=== PATIENT | male | born 1995 | race Caucasian/White ===

== ENCOUNTER 2019-04-15 21:55 | Emergency (ER) | payer OTHER ==
[2019-04-15 22:03] VITALS: BP 127/74; PULSE 76; TEMP 98.6; BMI 22.4
[2019-04-15] MEDS ORDERED: IBUPROFEN 400 MG TABLET (FP) PO ONE ×2 (22:27→22:31)
[2019-04-15] MEDS ORDERED: hydrOXYzine PAMOATE 25 MG CAPSULE (FP) PO ONE ×2 (22:27→22:31)
--- NOTE | 2019-04-15 23:04 | PDOC ---
Documentation entered by Marlee Keller SCRIBE, acting as scribe for Sebastian Monte MD. Sebastian Monte MD: This documentation has been prepared by the Arianna earl Xhesika, SCRIBE, under my direction and personally reviewed by me in its entirety. I confirm that the documentation accurately reflects all work, treatment, procedures, and medical decision making performed by me. History of Present Illness - General Chief Complaint: Back Pain Stated Complaint: BACK PAIN Time Seen by Provider: 04/15/19 22:02 History Source: Patient Exam Limitations: No Limitations - History of Present Illness Initial Comments: 04/15/19 22:38 The patient is a 23 year old male with a significant PMH of minor scoliosis who presents to the emergency department for 8 days of mid back pain. The patient is unable to recall what triggered his back pain however, he remembers driving his brother to the airport and lifting his luggage prior to the onset of his back pain. Pt states his back pain can get so severe it is unbearable to walk or sit down. Pt has been taking ibuprofen, using patches and belts for his back with mild relief of symptoms. Pt states his back pain is aggravated when lifting his hands. Pt notes he spends time sitting and playing video games. The patient denies chest pain, shortness of breath, headache and dizziness. Denies fever, chills, cough, nausea, vomiting, diarrhea and constipation. Allergies: NKDA Past History - Past Medical History Allergies/Adverse Reactions: Allergies Allergy/AdvReac Type Severity Reaction Status Date / Time No Known Allergies Allergy Unverified 04/15/19 21:56 Home Medications: Ambulatory Orders Cyclobenzaprine HCl [Flexeril -] 10 mg PO TID #15 tablet 04/15/19 Ibuprofen 800 mg PO TID #15 tablet 04/15/19 COPD: No - Psycho Social/Smoking Cessation Hx Smoking History: Current every day smoker Number of Cigarettes Smoked Daily: 5 Information on smoking cessation initiated: Yes Review of Systems - Review of Systems Able to Perform ROS?: Yes Comments:: 04/15/19 22:40 GENERAL/CONSTITUTIONAL: No fever or chills. No weakness. HEAD, EYES, EARS, NOSE AND THROAT: No change in vision. No ear pain or discharge. No sore throat. CARDIOVASCULAR: No chest pain or shortness of breath. RESPIRATORY: No cough, wheezing, or hemoptysis. GASTROINTESTINAL: No nausea, vomiting, diarrhea or constipation. GENITOURINARY: No dysuria, frequency, or change in urination. MUSCULOSKELETAL: No joint or muscle swelling or pain. No neck pain. +mid back pain. SKIN: No rash NEUROLOGIC: No headache, vertigo, loss of consciousness, or change in strength/ sensation. ENDOCRINE: No increased thirst. No abnormal weight change. HEMATOLOGIC/LYMPHATIC: No anemia, easy bleeding, or history of blood clots. ALLERGIC/IMMUNOLOGIC: No hives or skin allergy. *Physical Exam - Vital Signs Last Vital Signs Temp Pulse Resp BP Pulse Ox 98.6 F 76 16 127/74 100 04/15/19 21:58 04/15/19 21:58 04/15/19 21:58 04/15/19 21:58 04/15/19 21:58 - Physical Exam 04/15/19 22:40 GENERAL: Awake, alert, and fully oriented, in no acute distress NECK: Normal ROM, supple, no lymphadenopathy, JVD, or masses LUNGS: Breath sounds equal, clear to auscultation bilaterally. No wheezes, and no crackles HEART: Regular rate and rhythm, normal S1 and S2, no murmurs, rubs or gallops ABDOMEN: Soft, nontender, normoactive bowel sounds. No guarding, no rebound. No masses BACK: + mild paravatebral muscle spasms to palpation along the thoracic spine bilaterally. No point tenderness. No radiculopathy. EXTREMITIES: Normal range of motion, no edema. No clubbing or cyanosis. No cords, erythema, or tenderness NEUROLOGICAL: Cranial nerves II through XII grossly intact. Normal speech, normal gait SKIN: Warm, Dry, normal turgor, no rashes or lesions noted. ED Treatment Course - RADIOLOGY Radiology Studies Ordered: Category Date Time Status SPINE-THORACIC [RAD] Stat Radiology 04/15/19 22:30 Ordered Medical Decision Making - Medical Decision Making 04/15/19 23:03 X-ray negative Most likely muscle strain. Rest, symptomatic treatment, and follow-up as necessary. Fully ambulatory and no significant pain or other distress at discharge with family Discharge - Discharge Information Problems reviewed: Yes Clinical Impression/Diagnosis: Muscle strain of upper back Condition: Improved Disposition: HOME - Admission No - Additional Discharge Information Prescriptions: Cyclobenzaprine HCl [Flexeril -] 10 mg PO TID #15 tablet Ibuprofen 800 mg PO TID #15 tablet - Follow up/Referral Referrals: Cheryl Avila MD [Primary Care Provider] - 3 days - Patient Discharge Instructions Patient Printed Discharge Instructions: DI for Thoracic Back Pain Additional Instructions: Rest, heat, with sitting in a chair or car. Medication as directed. Follow-up primary physician if no improvement in 3 to 5 days - Post Discharge Activity
== END 2019-04-15 23:14 | disposition home or self-care (01) ==
LOC: FER 21:55
DX: S29.012A Strain of muscle and tendon of back wall of thorax, initial encounter (principal); F17.210 Nicotine dependence, cigarettes, uncomplicated; M41.9 Scoliosis, unspecified
CPT/HCPCS: 72070-TC-FY; 99283-25

== ENCOUNTER 2020-08-04 18:50 | Emergency (ER) | payer OTHER ==
[2020-08-04 18:54] VITALS: BP 115/68; PULSE 67; TEMP 98.7; BMI 19.8
== END 2020-08-04 19:55 | disposition home or self-care (01) ==
LOC: FER 18:50
DX: S83.92XA Sprain of unspecified site of left knee, initial encounter (principal)
CPT/HCPCS: 99281-25